=== PATIENT | female | born 1975 | race Caucasian/White ===

== ENCOUNTER 2018-05-30 14:57 | Inpatient (IN) | payer MEDICAID ==
[~2018-05-30] VITALS: Ht 162.6 cm; Wt 85.0 kg
[2018-05-30 16:28] VITALS: Ht 162.6 cm; Wt 85.0 kg
[2018-05-30 16:30] VITALS: BP 102/97; PULSE 71
[2018-05-30] MEDS ORDERED: PNV11TAB PO (16:31)
[2018-05-30] MEDS ORDERED: TERBUTALINE 1 ML ONE (18:25)
[2018-05-30] MEDS ORDERED: TERBUTALINE 1 MG/ML INJ SC ONE (18:30)
[2018-05-30] MEDS ORDERED: ACETAMINOPHEN 325 MG TAB PO PRN (21:30)
[2018-05-30] MEDS ORDERED: MAGNESIUM SULFATE 4 GM/100 ML 100 ML IV ONE (21:30)
--- NOTE | 2018-05-30 21:42 | HP ---
Date/Time of Note Date/Time of Note DATE: 05/30/18 TIME: 21:39 OB - History Hx of Present Chief Complaint: contractions Estimated Due Date: Jul 14, 2018 : 1 Para: 0 Spontaneous : 0 Therapeutic : 0 Care: Good Care Ultrasounds: Other Abnormal Ultrasound Findings: fibroids Obstetrical Complications: None Medical Complications: None Past Family/Social History * Past Medical, Surgical, Family and Obstetric Histories reviewed from chart. OB Admission Exam Vital Signs Vital Signs Vital Signs Date Temp Pulse Resp B/P (MAP) Pulse Ox O2 O2 Flow FiO2 Time Delivery Rate 05/30/18 98.8 71 102/97 16:30 (99) Physical Exam HEENT: WNL Heart: Rhythm Normal Lungs: Clear, Equal Abdomen: WNL Extremities: Normal Reflexes: Normal Cervical Dilatation: None Effacement: 75% Station: -2 Membranes: Intact Heart Rate: 130's Accelerations: Accelerations Present Decelerations: No Decelerations Varibility: Moderate Contractions on Admission: < 5 Minutes Apart OB Assessment/Plan Reason for admission: labor Plan: Other Other plan: Admit IV magnesium sulfate IM betamethasone RAVI ZUÑIGA MD May 30, 2018 21:42
[2018-05-30] MEDS: LACTATED RINGER'S 1,000 ML IV SCH (21:55)
[2018-05-30] MEDS: BETAMET NA PHOS/AC(6 MG/ML) 2 ML INJ SYG IM SCH (22:21)
[2018-05-30] MEDS: MAGNESIUM SULFATE 20 GM/500 ML 500 ML IV SCH (22:54)
--- NOTE | 2018-05-31 00:24 | TRIAGE ---
OB Triage Datetime Report Generated by CPN: 05/31/2018 00:24 Datetime: 05/30/2018 23:41 Stage of : Antepartum Assessment Type: Ongoing Assessment Maternal Assessment Level of Consciousness: Fully Conscious DTR's/Clonus: DTRs 2+; No Clonus Headache: Denies Blurred Vision: No Respiratory Effort: Unlabored; Regular Rhythm; Equal Expansion Breath Sounds, Left: Clear and Equal Breath Sounds, Right: Clear and Equal Nausea/Vomiting: Denies RUQ Epigastric Pain: Denies Lower Extremities Edema: None Degree: None Upper Extremities Edema: None Degree: None Facial Edema: None Temperature Route: Oral Fall Risk Assessment History of Falling: (0) No Secondary Diagnosis: (0) No Ambulatory Aid: (0) Bedrest/Nurse Assist IV Therapy: (0) No Gait: (0) Normal/Bedrest/Immobile Mental Status: (0) Oriented to Own Ability Fall Score: 0 Fall Risk Score Definition: No Risk: No action required Datetime: 05/30/2018 23:30 Stage of : Antepartum Labor Evaluation Frequency: 2-6 Monitor Mode: External Duration (sec)2399: 50-80 Quality: Mild Pattern: Normal: <= 5 Contractions in 10 Minutes Resting Tone [place]: Relaxed Heart Rate FHR Baseline Rate: 135 Monitor Mode: External US Variability: Moderate 6-25 bpm Accelerations: 15X15 Decelerations: None Category: Category I Pain Assessment Pain Scale: 0 Pain Presence: None/Denies Pain Goal: 3 Datetime: 05/30/2018 22:30 Stage of : Antepartum Labor Evaluation Frequency: 2-4 Monitor Mode: External Duration (sec)2399: 50-80 Quality: Mild Pattern: Normal: <= 5 Contractions in 10 Minutes Resting Tone [place]: Relaxed Heart Rate FHR Baseline Rate: 135 Monitor Mode: External US Variability: Moderate 6-25 bpm Accelerations: 15X15 Decelerations: None Category: Category I Pain Assessment Pain Scale: 0 Pain Presence: None/Denies Pain Goal: 3 Datetime: 05/30/2018 21:56 Vaginal Exam Membrane Status: Intact Datetime: 05/30/2018 21:30 Stage of : OB Triage Labor Evaluation Frequency: 2-6 Monitor Mode: External Duration (sec)2399: 40-100 Quality: Mild Pattern: Normal: <= 5 Contractions in 10 Minutes Resting Tone [place]: Relaxed Heart Rate FHR Baseline Rate: 135 Monitor Mode: External US Variability: Moderate 6-25 bpm Accelerations: 15X15 Decelerations: None Category: Category I Pain Assessment Pain Scale: 0 Pain Presence: None/Denies Pain Goal: 3 Datetime: 05/30/2018 20:30 Stage of : OB Triage Labor Evaluation Frequency: 2-6 Monitor Mode: External Duration (sec)2399: 40-70 Quality: Mild Pattern: Normal: <= 5 Contractions in 10 Minutes Resting Tone [place]: Relaxed Heart Rate FHR Baseline Rate: 135 Monitor Mode: External US Variability: Moderate 6-25 bpm Accelerations: 15X15 Decelerations: None Category: Category I Pain Assessment Pain Scale: 0 Pain Presence: None/Denies Pain Goal: 3 Datetime: 05/30/2018 19:30 Stage of : OB Triage Labor Evaluation Frequency: 5-8 Monitor Mode: External Duration (sec)2399: 40-70 Quality: Mild Pattern: Normal: <= 5 Contractions in 10 Minutes Resting Tone [place]: Relaxed Heart Rate FHR Baseline Rate: 135 Monitor Mode: External US Variability: Moderate 6-25 bpm Accelerations: 15X15 Decelerations: None Category: Category I Pain Assessment Pain Scale: 0 Pain Presence: None/Denies Pain Goal: 3 Datetime: 05/30/2018 18:32 Labor Evaluation Frequency: 6-8 Monitor Mode: External Duration (sec)2399: 30-40 Pattern: Normal: <= 5 Contractions in 10 Minutes Resting Tone [place]: Relaxed Heart Rate FHR Baseline Rate: 130 Monitor Mode: External US Variability: Moderate 6-25 bpm Accelerations: 10X10 Decelerations: None Category: Category I Pain Assessment Pain Scale: 0 Pain Presence: None/Denies Pain Type: N/A Pain Goal: 3 Pain Relief Measures: Comfort Measures Datetime: 05/30/2018 18:16 Stage of : OB Triage Datetime: 05/30/2018 17:31 Labor Evaluation Frequency: 3-6 Monitor Mode: External Duration (sec)2399: 40-60 Quality: Mild Pattern: Normal: <= 5 Contractions in 10 Minutes Resting Tone [place]: Relaxed Heart Rate FHR Baseline Rate: 125 Monitor Mode: External US Variability: Moderate 6-25 bpm Accelerations: 10X10 Decelerations: None Category: Category I Pain Assessment Pain Scale: 0 Pain Presence: Intermittent Pain Type: N/A Pain Goal: 3 Pain Relief Measures: Comfort Measures Datetime: 05/30/2018 16:25 Stage of : OB Triage Assessment Type: Triage Maternal Assessment Level of Consciousness: Fully Conscious DTR's/Clonus: DTRs 2+; No Clonus Headache: Denies Blurred Vision: No Respiratory Effort: Unlabored; Regular Rhythm; Equal Expansion Breath Sounds, Left: Clear and Equal Breath Sounds, Right: Clear and Equal Nausea/Vomiting: Denies RUQ Epigastric Pain: Denies Facial Edema: None Temperature Route: Axillary Fall Risk Assessment History of Falling: (0) No Secondary Diagnosis: (0) No Ambulatory Aid: (0) Bedrest/Nurse Assist IV Therapy: (0) No Gait: (0) Normal/Bedrest/Immobile Mental Status: (0) Oriented to Own Ability Fall Score: 0 Fall Risk Score Definition: No Risk: No action required Labor Evaluation Frequency: 3-4 Monitor Mode: External Duration (sec)2399: 50-60 Quality: Mild Pattern: Normal: <= 5 Contractions in 10 Minutes Resting Tone [place]: Relaxed Heart Rate FHR Baseline Rate: 135 Monitor Mode: External US Variability: Moderate 6-25 bpm Accelerations: 10X10 Decelerations: None Category: Category I Pain Assessment Pain Scale: 0 (Annotations: DENIES FEELING) Pain Presence: None/Denies Pain Type: N/A Pain Goal: 3 Pain Relief Measures: Comfort Measures Datetime: 05/30/2018 16:23 Time of Arrival: 05/30/2018 15:00 EGA: 33.4 Arrived By: Ambulatory Arrived From: Office Chief Complaint: SENT OVER FROM NST TO R/O PTL, DENIES BLEEDING, LEAKING, OR UC'S Movement: Present Contractions: Denies/Absent Rupture of Membranes: Denies Vaginal Bleeding: None Vaginal Discharge: Denies Recent Sexual Intercouse: Denies Abdominal Trauma: Not Applicable Time Provider Notified: 05/30/2018 18:16 Provider Notified: PIERCE Initial Plan: MONITOR, BPP, CL, U/A, EFW
[2018-05-31] MEDS: PRENATAL VITAMIN PO SCH (09:58)
[2018-05-31] MEDS: LACTATED RINGER'S 1,000 ML IV SCH ×2 (09:58→23:51)
[2018-05-31] MEDS: FERROUS SULFATE (EC) 325 MG TAB PO SCH (09:58)
[2018-05-31] MEDS: MAGNESIUM SULFATE 20 GM/500 ML 500 ML IV SCH ×2 (10:02→20:44)
[2018-05-31] MEDS ORDERED: DIPHTH/TET/ACEL PERTUSS (ADULT) 0.5 ML VIAL IM* ONE (13:30)
--- NOTE | 2018-05-31 18:15 | PN ---
Date/Time of Note Date/Time of Note DATE: 05/31/18 TIME: 18:09 OB Subjective Subjective Subjective Date of admission: 05/30/2018 Patient seen and examined. She states good movement. She denies nausea, vomiting, shortness of breath, chest pain, abdominal pain, headache, visual changes, vaginal bleeding or LOF. OB Objective Objective Objective General: Patient appears well, alert and oriented, NAD, appropriate mood and affect ABD: gravid, soft, non-tender. Back: No CVA tenderness (B/L) LE: Mild edema. No clubbing, cyanosis, edema, thigh or calf tenderness bilaterally FHT: 130 bpm , moderate variability with acceleration, no deceleration-category I Contractions: Occasional OB Assessment/Plan Other plan: 42 Year-old G [id number] with SIUP at 33 weeks and 5 days with contractions. She had regular contraction every 2-3 minutes last night, her cervix was closed. However due to short interval of uterine contraction was admitted. She received 1 dose of betamethasone, will receive second dose of betamethasone today at 22:00. She is currently on magnesium sulfate, continue magnesium sulf ate for 24 hours after receiving second dose of steroid. If she has no further uterine contraction she may discharge home tomorrow. I strongly recommend relative bedrest and avoid from sexual activity. Sign and symptom of labor, preeclampsia, kick count discussed in detail with patient. She expressed understanding. All of her questions answered. Follow-up in 1 week in clinic, strongly recommend come back to triage if experiencing any regular uterine contractions. TRAVIS PELAYO May 31, 2018 18:15
--- NOTE | 2018-05-31 20:00 | NUR ---
pt refused vaccine she stated she had the vaccine at the clinic.
--- NOTE | 2018-05-31 20:10 | DS ---
Date/Time of Note Date/Time of Note DATE: 05/31/18 TIME: 20:09 Obstetrical Discharge Record Final Diagnosis Final Diagnosis: not delivered Other Final Diagnosis 42 Year-old G [id number] with SIUP at 33 weeks and 5 days with contractions. She had regular contraction every 2-3 minutes last night, her cervix was closed. However due to short interval of uterine contraction was admitted. She received 1 dose of betamethasone, will receive second dose of betamethasone today at 22:00. She is currently on magnesium sulfate, continue magnesium sulfate for 24 hours after receiving second dose of steroid. If she has no further uterine contraction she may discharge home tomorrow. I strongly recommend relative bedrest and avoid from sexual activity. Sign and symptom of labor, preeclampsia, kick count discussed in detail with patient. She expressed understanding. All of her questions answered. Follow-up in 1 week in clinic, strongly recommend come back to triage if experiencing any regular uterine contractions. Condition on Discharge Physical Assessment Voiding: Yes Bowel Movement: Yes Calf Tenderness: No Patient Condition: Stable TRAVIS PELAYO May 31, 2018 20:10
[2018-05-31] MEDS: BETAMET NA PHOS/AC(6 MG/ML) 2 ML INJ SYG IM SCH (22:08)
--- NOTE | 2018-06-01 01:25 | CONS ---
DATE OF ADMISSION: 05/30/2018 DATE OF CONSULTATION: 05/31/2018 HISTORY OF PRESENT ILLNESS: The patient is a at 33 weeks and 5 days, presented with la bor. Cervical length I do believe is 2.8 cm. She was placed on magnesium sulfate and given the firs t dose of betamethasone. Second dose is due tonight. She is currently on magnesium sulfate. RECOMMENDATIONS: Continue with the magnesium sulfate until tomorrow morning. If the patient is asym ptomatic, we can discontinue and monitor for contractions for a few hours. If she is stable, she can be discharged home with labor precautions. Dictated By: BETSY ALVAREZ MD ST/NTS Conf#: [id number] DID#: [id number] CC: TRAVIS PELAYO MD;*EndCC*
[2018-06-01] MEDS: MAGNESIUM SULFATE 20 GM/500 ML 500 ML IV SCH (06:48)
[2018-06-01] MEDS: FERROUS SULFATE (EC) 325 MG TAB PO SCH (09:33)
[2018-06-01] MEDS: PRENATAL VITAMIN PO SCH (09:34)
[2018-06-01] MEDS ORDERED: LACTATED RINGER'S 1,000 ML IV SCH (12:30)
--- NOTE | 2018-06-01 13:01 | PN ---
Date/Time of Note Date/Time of Note DATE: 06/01/18 TIME: 12:58 OB Subjective Subjective Subjective Patient denies any complaint. Comfortable in the bed. Denies feeling any ut erine contraction, leaking of fluid, vaginal bleeding or decreased movement. Denies any chest pain shortness of breath, denies any dizziness lightheadedness, OB Objective Objective Objective Appearance: Alert and oriented x4 does not appear to be in any acute distress Abdomen: Soft, gravid, fundal height consider gestational age Lungs: Clear to auscultation bilaterally CV: RRR This: SCDs are on. No calf tenderness, no click no edema NST: Category 1 and appropriate for gestational age occasional very rare contractions noted on monitor. Patient does not have any Complaint of her symptoms. OB Assessment/Plan Other Assessment: IUP at 32 weeks Admitted for contraction On magnesium, asymptomatic, no evidence of regular contractions Status post 2 doses of steroid testing reassuring We will taper off of magnesium may discharge home if she remains stable and asymptomatic And okay discussed with patient to have a follow-up within 48 hours after discharge from the hospital with primary OB office. Strict labor precautions kick count discussed. Adequate hydration discussed after discharge from the hospital. Patient understands importance of these precautions and the risk of premature delivery in case of being noncompliant with instructions She is aware of all the danger signs including vaginal bleeding or decreased movement, contractions. LILI OLSON MD Jun 01, 2018 13:01
--- NOTE | 2018-06-01 16:13 | CONS ---
Consultation Date/Type/Reason Admit Date/Time May 30, 2018 at 21:30 Date of Consultation: Jun 01, 2018 Type of Consult Medicine Reason for Consultation [place] [facility] requested by Dr. Sevilla to discuss potential course and possible morbidity associated with at 33 weeks completed gestation following steroids. Met briefly with mother at bedside who is preparing for discharge home after presenting to L&D in labor with intact membranes 05/30 PM At 33 4/7 wks gestation. Mother is a 42 yo O+ [id number] with EDC 07/14/2018 (EGA 33 6/7 wks). She presented 05/30 and was treated with MgSO4. Contractions have now stopped and MgSO4 stopped this AM. A course of Betamethasone was started 05/30 PM and completed 05/31 PM. Advised mother through apprentice funeral director that infants born at this gestation following steroids generally do well. All infants born at this gestation are admitted to the Intensive Care Nursery. Although the possibility still exists that such newborns will have respiratory illness and require respiratory support, it is not a certainty and such infants usually require monitoring and support for temperature instability and nippling immaturity. Assuming that factors which increase the likelihood of infection do not exist, and the infant does not demonstrate immaturity related to breathing control, such infants generally remain hospitalized for 2-3 weeks. It was emphasized that the typical course is as discussed, but each infant is different and the course may vary. Mother voiced understanding and asked appropriate questions. Assured mother of availability if further questions should arise. Date/Time of Note DATE: 06/01/18 TIME: 15:47 Past Medical History Home Meds Reported Medications [id number] ( 19) 1 Each Tablet, 1 TAB PO DAILY, TAB 05/30/18 Medications Current Medications Prenat Multivit/ [place]/Iron/Folic Ac () 1 tab DAILY PO Last administered on 06/01/18at 09:34; Admin Dose 1 TAB; Start 05/31/18 at 09:00 Ferrous Sulfate (Ferrous Sulfate (Ec)) 325 mg DAILY PO Last administered on 06/01/18at 09:33; Admin Dose 325 MG; Start 05/31/18 at 09:00 Acetaminophen (Tylenol Tab) 650 mg Q4H PRN PO PAIN; Start 05/30/18 at 21:30 Lactated Ringer's 1,000 ml @ 100 mls/hr Q10H IV ; Start 06/01/18 at 12:30 Allergies: Coded Allergies: amoxicillin (Verified Allergy, Unknown, 05/30/18) Uncoded Allergies: pcn (Allergy, Unknown, 05/30/18) Social History Smoking Status: Never smoker Exam/Review of Systems Exam Vitals Vital Signs Date Temp Pulse Resp B/P (MAP) Pulse Ox O2 O2 Flow FiO2 Time Delivery Rate 05/30/18 98.8 71 102/97 16:30 (99) Intake and Output 05/31/18 05/31/18 06/01/18 1515:00 23:00 07:00 IntakeIntake Total 975 ml 2250 ml 1000 ml OutputOutput Total 1900 ml 1200 ml BalanceBalance -925 ml 1050 ml 1000 ml Results Result Diagram: 05/30/18214405/30/182144 Results 24hrs Laboratory Tests Test 05/31/18 18:28 06/01/18 00:48 06/01/18 06:29 06/01/18 12:03 Magnesium Level 5.8 *H 5.7 *H 5.9 *H 5.5 *H HAFSA JIMENEZ MD Jun 01, 2018 16:13
== END 2018-06-01 17:26 | disposition home or self-care (01) | DRG 833 ==
LOC: OBT 14:57 → L-D 14:59 → OBT 21:30 → L-D 21:30 → PP1 23:33
PROVIDERS: ADMIT Obstetrics & Gynecology; ATTEND Obstetrics & Gynecology
DX: O60.03 Preterm labor without delivery, third trimester (principal); Z3A.33 33 weeks gestation of pregnancy
CPT/HCPCS: 76815; 76817; 76818; 80053; 81003; 83735; 85025; 85610; 85730; 87086; 90686; 96372; G0463; J0702; J3105; J3475; J7120

== ENCOUNTER 2018-06-22 09:52 | Outpatient (CLI) | payer MEDICAID ==
[~2018-06-22] VITALS: Ht 152.4 cm; Wt 85.2 kg
[~2018-06-22 09:52] MED LIST: PNV11TAB PO
[2018-06-22 10:30] VITALS: Ht 152.4 cm; Wt 85.2 kg
[2018-06-22 10:32] VITALS: BP 101/68; PULSE 87; RESP 20
--- NOTE | 2018-06-22 13:09 | TRIAGE ---
OB Triage Datetime Report Generated by CPN: 06/22/2018 13:08 Datetime: 06/22/2018 10:33 Headache: Denies Labor Evaluation Frequency: 0 Monitor Mode: External Resting Tone [place]: Relaxed Heart Rate FHR Baseline Rate: 140 Monitor Mode: External US FHR Baseline Changes: No Baseline Change Variability: Minimal - Undetectable to <=5 bpm Accelerations: 10X10 Decelerations: None Category: Category II Pain Presence: None/Denies Datetime: 06/22/2018 10:22 Stage of : OB Triage Assessment Type: Triage Maternal Assessment Level of Consciousness: Fully Conscious DTR's/Clonus: DTRs 2+; No Clonus Headache: Denies Blurred Vision: No Respiratory Effort: Unlabored; Regular Rhythm; Equal Expansion Breath Sounds, Left: Clear and Equal Breath Sounds, Right: Clear and Equal Nausea/Vomiting: Denies RUQ Epigastric Pain: Denies Lower Extremities Edema: None Degree: None Upper Extremities Edema: None Degree: None Facial Edema: None Temperature Route: Axillary Fall Risk Assessment History of Falling: (0) No Secondary Diagnosis: (0) No Ambulatory Aid: (0) Bedrest/Nurse Assist IV Therapy: (0) No Gait: (0) Normal/Bedrest/Immobile Mental Status: (0) Oriented to Own Ability Fall Score: 0 Fall Risk Score Definition: No Risk: No action required Monitor Mode: External Monitor Mode: External US Pain Assessment Pain Scale: 0 Pain Presence: None/Denies Pain Type: N/A Pain Goal: 0 Pain Relief Measures: Comfort Measures Vaginal Exam Dilatation (cms): DEFFER Membrane Status: Intact Datetime: 06/22/2018 10:19 Time of Arrival: 06/22/2018 10:19 EGA: 36.6 Arrived By: Ambulatory Arrived From: Home Chief Complaint: DECREASED FERAL MOVEMENT AT [facility],HAS A COLD FOR 3 DAYS Movement: Decreased Contractions: Denies/Absent Rupture of Membranes: Denies Vaginal Bleeding: None Vaginal Discharge: Denies Recent Sexual Intercouse: Denies Abdominal Trauma: Not Applicable Patient Complaints: Other Additional Patient Complaints: NONE Time Provider Notified: 06/22/2018 11:05 Provider Notified: ARDALN Initial Plan: EXTENDED OBSERVATION Datetime: 06/01/2018 16:00 Stage of : Antepartum Temperature Route: Oral Labor Evaluation Frequency: 0 Monitor Mode: External Pattern: Normal: <= 5 Contractions in 10 Minutes Resting Tone [place]: Relaxed Heart Rate FHR Baseline Rate: 130 Monitor Mode: External US FHR Baseline Changes: No Baseline Change Variability: Moderate 6-25 bpm Accelerations: 15X15 Decelerations: None Category: Category I Pain Assessment Pain Scale: 0 Pain Presence: None/Denies Pain Goal: 0 Datetime: 06/01/2018 15:00 Labor Evaluation Frequency: 0 Monitor Mode: External Pattern: Normal: <= 5 Contractions in 10 Minutes Resting Tone [place]: Relaxed Heart Rate FHR Baseline Rate: 130 Monitor Mode: External US FHR Baseline Changes: No Baseline Change Variability: Moderate 6-25 bpm Accelerations: 15X15 Decelerations: None Category: Category I Datetime: 06/01/2018 14:00 Labor Evaluation Frequency: 0 Monitor Mode: External Resting Tone [place]: Relaxed Heart Rate FHR Baseline Rate: 130 Monitor Mode: External US FHR Baseline Changes: No Baseline Change Variability: Moderate 6-25 bpm Accelerations: 15X15 Decelerations: None Category: Category I Datetime: 06/01/2018 12:32 Labor Evaluation Frequency: 0 Monitor Mode: External Resting Tone [place]: Relaxed Heart Rate FHR Baseline Rate: 125 Monitor Mode: External US FHR Baseline Changes: No Baseline Change Variability: Moderate 6-25 bpm Accelerations: 15X15 Decelerations: None Category: Category I Datetime: 06/01/2018 12:31 Stage of : Antepartum Temperature Route: Oral Pain Assessment Pain Scale: 0 Pain Presence: None/Denies Pain Goal: 0 Datetime: 06/01/2018 12:00 Labor Evaluation Frequency: 0 Monitor Mode: External Pattern: Normal: <= 5 Contractions in 10 Minutes Resting Tone [place]: Relaxed Heart Rate FHR Baseline Rate: 125 Monitor Mode: External US FHR Baseline Changes: No Baseline Change Variability: Moderate 6-25 bpm Accelerations: 15X15 Decelerations: None Category: Category I Datetime: 06/01/2018 11:00 Labor Evaluation Frequency: 0 Monitor Mode: External Pattern: Normal: <= 5 Contractions in 10 Minutes Resting Tone [place]: Relaxed Heart Rate FHR Baseline Rate: 120 Monitor Mode: External US FHR Baseline Changes: No Baseline Change Variability: Moderate 6-25 bpm Accelerations: 15X15 Decelerations: None Category: Category I Datetime: 06/01/2018 10:07 Stage of : Antepartum Datetime: 06/01/2018 10:00 Labor Evaluation Frequency: 0 Monitor Mode: External Pattern: Normal: <= 5 Contractions in 10 Minutes Resting Tone [place]: Relaxed Heart Rate FHR Baseline Rate: 120 Monitor Mode: External US FHR Baseline Changes: No Baseline Change Variability: Moderate 6-25 bpm Accelerations: 15X15 Decelerations: None Category: Category I Datetime: 06/01/2018 09:00 Labor Evaluation Frequency: 0 Monitor Mode: External Pattern: Normal: <= 5 Contractions in 10 Minutes Resting Tone [place]: Relaxed Heart Rate FHR Baseline Rate: 125 Monitor Mode: External US FHR Baseline Changes: No Baseline Change Variability: Moderate 6-25 bpm Accelerations: 15X15 Decelerations: None Category: Category I Datetime: 06/01/2018 07:44 Labor Evaluation Frequency: 0 Monitor Mode: External Pattern: Normal: <= 5 Contractions in 10 Minutes Heart Rate FHR Baseline Rate: 120 Monitor Mode: External US FHR Baseline Changes: No Baseline Change Variability: Moderate 6-25 bpm Accelerations: 15X15 Decelerations: None Category: Category I Datetime: 06/01/2018 07:43 Stage of : Antepartum Temperature Route: Oral Pain Assessment Pain Scale: 0 Pain Presence: None/Denies Pain Goal: 0 Datetime: 06/01/2018 07:39 Assessment Type: Ongoing Assessment Maternal Assessment Level of Consciousness: Fully Conscious DTR's/Clonus: DTRs 2+; No Clonus Headache: Denies Blurred Vision: No Respiratory Effort: Unlabored; Regular Rhythm; Equal Expansion Breath Sounds, Left: Clear and Equal Breath Sounds, Right: Clear and Equal Nausea/Vomiting: Denies RUQ Epigastric Pain: Denies Lower Extremities Edema: None Degree: None Upper Extremities Edema: None Degree: None Facial Edema: None Fall Risk Assessment History of Falling: (0) No Secondary Diagnosis: (0) No Ambulatory Aid: (0) Bedrest/Nurse Assist IV Therapy: (20) Yes Gait: (0) Normal/Bedrest/Immobile Mental Status: (0) Oriented to Own Ability Fall Score: 20 Fall Risk Score Definition: No Risk: No action required Datetime: 06/01/2018 06:00 Labor Evaluation Frequency: 0 Monitor Mode: External Resting Tone [place]: Relaxed Heart Rate FHR Baseline Rate: 125 Monitor Mode: External US Variability: Moderate 6-25 bpm Accelerations: 15X15 Decelerations: None Category: Category I Pain Presence: None/Denies Datetime: 06/01/2018 05:00 Labor Evaluation Frequency: 0 Monitor Mode: External Duration (sec)2399: DENIES Resting Tone [place]: Relaxed Heart Rate FHR Baseline Rate: 130 Monitor Mode: External US Variability: Moderate 6-25 bpm Accelerations: 15X15 Decelerations: None Category: Category I Pain Presence: None/Denies Datetime: 06/01/2018 04:00 Labor Evaluation Frequency: 0 Monitor Mode: External Duration (sec)2399: DENIES Resting Tone [place]: Relaxed Heart Rate FHR Baseline Rate: 125 Monitor Mode: External US Variability: Moderate 6-25 bpm Accelerations: 15X15 Decelerations: None Category: Category I Pain Presence: None/Denies Datetime: 06/01/2018 03:00 Labor Evaluation Frequency: X2 Monitor Mode: External Duration (sec)2399: 40-60 Quality: Mild Resting Tone [place]: Relaxed Heart Rate FHR Baseline Rate: 130 Monitor Mode: External US Variability: Moderate 6-25 bpm Accelerations: 15X15 Decelerations: None Category: Category I Pain Presence: None/Denies Datetime: 06/01/2018 02:00 Stage of : Antepartum Labor Evaluation Frequency: x2 Monitor Mode: External Duration (sec)2399: 50-60 Quality: Mild Resting Tone [place]: Relaxed Heart Rate FHR Baseline Rate: 125 Monitor Mode: External US Variability: Moderate 6-25 bpm Accelerations: 15X15 Decelerations: None Category: Category I Pain Presence: None/Denies Datetime: 06/01/2018 01:00 Labor Evaluation Frequency: x1 Monitor Mode: External Duration (sec)2399: 50 Quality: Mild Resting Tone [place]: Relaxed Heart Rate FHR Baseline Rate: 130 Monitor Mode: External US Variability: Moderate 6-25 bpm Accelerations: 15X15 Decelerations: None Category: Category I Pain Presence: None/Denies Datetime: 06/01/2018 00:00 Labor Evaluation Frequency: 0 Monitor Mode: External Duration (sec)2399: DENIES Resting Tone [place]: Relaxed Heart Rate FHR Baseline Rate: 135 Monitor Mode: External US Variability: Moderate 6-25 bpm Accelerations: 15X15 Decelerations: None Category: Category I Pain Presence: None/Denies Datetime: 05/31/2018 23:00 Labor Evaluation Frequency: 0 Monitor Mode: External Duration (sec)2399: DENIES Resting Tone [place]: Relaxed Heart Rate FHR Baseline Rate: 135 Monitor Mode: External US Variability: Moderate 6-25 bpm Accelerations: 15X15 Decelerations: None Category: Category I Pain Presence: None/Denies Datetime: 05/31/2018 22:00 Labor Evaluation Frequency: 0 Monitor Mode: External Duration (sec)2399: DENIES Resting Tone [place]: Relaxed Heart Rate FHR Baseline Rate: 135 Monitor Mode: External US Accelerations: 15X15 Decelerations: None Category: Category I Pain Presence: None/Denies Datetime: 05/31/2018 21:18 Comments: PT DONE EATING. Datetime: 05/31/2018 21:00 Labor Evaluation Frequency: 0 Monitor Mode: External Duration (sec)2399: DENIES Resting Tone [place]: Relaxed Heart Rate FHR Baseline Rate: 130 Pain Presence: None/Denies Datetime: 05/31/2018 20:40 Comments: PT OFF MONITOR SHE IS EATING DINNER. Datetime: 05/31/2018 20:00 Labor Evaluation Frequency: 0 Monitor Mode: External Duration (sec)2399: DENIES Resting Tone [place]: Relaxed Heart Rate FHR Baseline Rate: 135 Monitor Mode: External US Variability: Moderate 6-25 bpm Accelerations: 15X15 Decelerations: None Category: Category I Pain Presence: None/Denies Datetime: 05/31/2018 19:10 Stage of : Antepartum Assessment Type: Ongoing Assessment Maternal Assessment Level of Consciousness: Fully Conscious DTR's/Clonus: DTRs 2+; No Clonus Headache: Denies Blurred Vision: No Respiratory Effort: Unlabored; Regular Rhythm; Equal Expansion Breath Sounds, Left: Clear and Equal Breath Sounds, Right: Clear and Equal Nausea/Vomiting: Denies RUQ Epigastric Pain: Denies Lower Extremities Edema: None Degree: None Upper Extremities Edema: None Facial Edema: None Temperature Route: Oral Fall Risk Assessment History of Falling: (0) No Secondary Diagnosis: (0) No Ambulatory Aid: (0) Bedrest/Nurse Assist IV Therapy: (0) No Gait: (0) Normal/Bedrest/Immobile Mental Status: (0) Oriented to Own Ability Fall Score: 0 Fall Risk Score Definition: No Risk: No action required Pain Presence: None/Denies Datetime: 05/31/2018 17:15 Stage of : Antepartum Temperature Route: Oral Labor Evaluation Frequency: 0 Monitor Mode: External Pattern: Normal: <= 5 Contractions in 10 Minutes Monitor Mode: off in the shower with supervision Pain Assessment Pain Scale: 0 Pain Presence: None/Denies Pain Goal: 0 Datetime: 05/31/2018 17:12 Stage of : Antepartum Temperature Route: Oral Pain Assessment Pain Scale: 0 Pain Presence: None/Denies Pain Goal: 0 Datetime: 05/31/2018 16:00 Labor Evaluation Frequency: 0 Monitor Mode: External Pattern: Normal: <= 5 Contractions in 10 Minutes Resting Tone [place]: Relaxed Heart Rate FHR Baseline Rate: 140 (Annotations: poor tracings) Monitor Mode: External US Datetime: 05/31/2018 15:06 Stage of : Antepartum Temperature Route: Oral Pain Assessment Pain Scale: 0 Pain Presence: None/Denies Pain Goal: 0 Datetime: 05/31/2018 15:00 Labor Evaluation Frequency: 0 Monitor Mode: External Pattern: Normal: <= 5 Contractions in 10 Minutes Resting Tone [place]: Relaxed Heart Rate FHR Baseline Rate: 130 Monitor Mode: External US FHR Baseline Changes: No Baseline Change Variability: Moderate 6-25 bpm Accelerations: 15X15 Decelerations: None Category: Category I Datetime: 05/31/2018 14:00 Labor Evaluation Frequency: 0 Monitor Mode: External Pattern: Normal: <= 5 Contractions in 10 Minutes Resting Tone [place]: Relaxed Heart Rate FHR Baseline Rate: 130 Monitor Mode: External US FHR Baseline Changes: No Baseline Change Variability: Moderate 6-25 bpm Accelerations: 15X15 Decelerations: None Category: Category I Datetime: 05/31/2018 13:00 Labor Evaluation Frequency: 0 Monitor Mode: External Pattern: Normal: <= 5 Contractions in 10 Minutes Resting Tone [place]: Relaxed Heart Rate FHR Baseline Rate: 130 Monitor Mode: External US FHR Baseline Changes: No Baseline Change Variability: Moderate 6-25 bpm Accelerations: 15X15 Decelerations: None Category: Category I Datetime: 05/31/2018 12:58 Stage of : Antepartum Datetime: 05/31/2018 12:35 Stage of : Antepartum Temperature Route: Oral Pain Assessment Pain Scale: 0 Pain Presence: None/Denies Pain Goal: 0 Datetime: 05/31/2018 11:49 Labor Evaluation Frequency: x2 Monitor Mode: External Quality: Mild Resting Tone [place]: Relaxed Heart Rate FHR Baseline Rate: 130 Monitor Mode: External US FHR Baseline Changes: No Baseline Change Variability: Moderate 6-25 bpm Accelerations: 15X15 Decelerations: None Category: Category I Datetime: 05/31/2018 11:45 Stage of : Antepartum Datetime: 05/31/2018 11:29 Stage of : Antepartum Datetime: 05/31/2018 11:03 Maternal Assessment Level of Consciousness: Fully Conscious DTR's/Clonus: DTRs 2+; No Clonus Headache: Denies Blurred Vision: No Respiratory Effort: Unlabored; Regular Rhythm Breath Sounds, Left: Clear and Equal Breath Sounds, Right: Clear and Equal Datetime: 05/31/2018 11:00 Stage of : Antepartum Labor Evaluation Frequency: 0 Monitor Mode: External Resting Tone [place]: Relaxed Heart Rate FHR Baseline Rate: 130 Monitor Mode: External US FHR Baseline Changes: No Baseline Change Variability: Moderate 6-25 bpm Accelerations: 15X15 Decelerations: None Category: Category I Datetime: 05/31/2018 10:00 Labor Evaluation Frequency: 0 Monitor Mode: External Pattern: Normal: <= 5 Contractions in 10 Minutes Resting Tone [place]: Relaxed Heart Rate FHR Baseline Rate: 130 Monitor Mode: External US FHR Baseline Changes: No Baseline Change Variability: Moderate 6-25 bpm Accelerations: 15X15 Decelerations: None Category: Category I Datetime: 05/31/2018 09:30 Labor Evaluation Frequency: X1 Monitor Mode: External Resting Tone [place]: Relaxed Heart Rate FHR Baseline Rate: 130 Monitor Mode: External US FHR Baseline Changes: No Baseline Change Variability: Moderate 6-25 bpm Accelerations: 15X15 Decelerations: None Category: Category I Datetime: 05/31/2018 09:00 Labor Evaluation Frequency: 0 Monitor Mode: External Resting Tone [place]: Relaxed Monitor Mode: External US Datetime: 05/31/2018 07:56 Stage of : Labor Datetime: 05/31/2018 07:55 Labor Evaluation Frequency: X1 Monitor Mode: External Resting Tone [place]: Relaxed Heart Rate FHR Baseline Rate: 125 Monitor Mode: External US FHR Baseline Changes: No Baseline Change Variability: Moderate 6-25 bpm Accelerations: 15X15 Decelerations: None Category: Category I Datetime: 05/31/2018 07:54 Stage of : Antepartum Temperature Route: Oral Pain Assessment Pain Scale: 0 Pain Presence: None/Denies Pain Goal: 0 Datetime: 05/31/2018 07:50 Assessment Type: Ongoing Assessment Maternal Assessment Level of Consciousness: Fully Conscious DTR's/Clonus: DTRs 2+; No Clonus Headache: Denies Blurred Vision: No Respiratory Effort: Unlabored; Regular Rhythm; Equal Expansion Breath Sounds, Left: Clear and Equal Breath Sounds, Right: Clear and Equal Nausea/Vomiting: Denies RUQ Epigastric Pain: Denies Lower Extremities Edema: None Degree: None Upper Extremities Edema: None Degree: None Facial Edema: None Fall Risk Assessment History of Falling: (0) No Secondary Diagnosis: (0) No Ambulatory Aid: (0) Bedrest/Nurse Assist IV Therapy: (20) Yes Gait: (0) Normal/Bedrest/Immobile Mental Status: (0) Oriented to Own Ability Fall Score: 20 Fall Risk Score Definition: No Risk: No action required Datetime: 05/31/2018 07:45 Stage of : Antepartum Datetime: 05/31/2018 06:30 Labor Evaluation Frequency: x3 Monitor Mode: External Duration (sec)2399: 40-50 Quality: Mild Resting Tone [place]: Relaxed Heart Rate FHR Baseline Rate: 140 Monitor Mode: External US Variability: Moderate 6-25 bpm Accelerations: 15X15 Decelerations: None Category: Category I Pain Presence: None/Denies Datetime: 05/31/2018 05:30 Labor Evaluation Frequency: occasional Monitor Mode: External Duration (sec)2399: 40-60 Quality: Mild Resting Tone [place]: Relaxed Heart Rate FHR Baseline Rate: 135 Monitor Mode: External US Variability: Moderate 6-25 bpm Accelerations: 15X15 Decelerations: None Category: Category I Pain Presence: None/Denies Datetime: 05/31/2018 04:30 Labor Evaluation Frequency: 0 Monitor Mode: External Duration (sec)2399: DENIES Resting Tone [place]: Relaxed Heart Rate FHR Baseline Rate: 130 Monitor Mode: External US Variability: Moderate 6-25 bpm Accelerations: 15X15 Decelerations: None Category: Category I Datetime: 05/31/2018 03:30 Labor Evaluation Frequency: 0 Monitor Mode: External Duration (sec)2399: DENIES Resting Tone [place]: Relaxed Heart Rate FHR Baseline Rate: 135 Monitor Mode: External US Variability: Moderate 6-25 bpm Accelerations: 15X15 Decelerations: None Category: Category I Pain Presence: None/Denies Datetime: 05/31/2018 02:30 Labor Evaluation Frequency: 0 Monitor Mode: External Duration (sec)2399: DENIES Resting Tone [place]: Relaxed Heart Rate FHR Baseline Rate: 135 Monitor Mode: External US Variability: Moderate 6-25 bpm Accelerations: 15X15 Decelerations: Variable Category: Category II Datetime: 05/31/2018 01:30 Labor Evaluation Frequency: 0 Monitor Mode: External Duration (sec)2399: DENIES Resting Tone [place]: Relaxed Heart Rate FHR Baseline Rate: 135 Monitor Mode: External US Variability: Moderate 6-25 bpm Accelerations: 15X15 Decelerations: None Category: Category I Datetime: 05/31/2018 00:30 Labor Evaluation Frequency: x1 Monitor Mode: External Duration (sec)2399: 40 Quality: Mild Resting Tone [place]: Relaxed Heart Rate FHR Baseline Rate: 140 Monitor Mode: External US Variability: Moderate 6-25 bpm Accelerations: 15X15 Decelerations: None Category: Category I Pain Presence: None/Denies Datetime: 05/30/2018 23:41 Fall Score: 0 Fall Risk Score Definition: No Risk: No action required Datetime: 05/30/2018 16:25 Fall Score: 0 Fall Risk Score Definition: No Risk: No action required Datetime: 05/30/2018 16:23 EGA: 33.4
--- NOTE | 2018-07-06 19:04 | PN ---
Triage Information Date/Time Late entry note for exam for June 22, 2018 Reason for visit: DFM Weeks of Gestation 36 weeks and 6 days /Para Additional information 23-year-old female with at 36 weeks and 6 days currently being followed at [facility] clinic due to low in hip pain. She was sent to triage due to decreased movement and cold symptoms. Patient denies any leaking of fluid vaginal bleeding or contractions. Objective Heart Rate: 130's Heart Rate Comments Category 1 and reactive Contractions: None Exam General appearance: Alert and oriented x4 does not appear to be in any acute distress Abdomen: Soft, gravid, fundal height consider gestational age NST: Category 1 BPP: 8 8 Disposition: Discharge Assessment/Plan IUP at 36 weeks and 6 days Decreased movement No any pain. Being followed by [facility] clinic testing reassuring Patient will be discharged home patient advised to continue testing twice a week and follow-up with perinatologist Verbalized understanding. All questions were answered to patient's best satisfaction. LILI OLSON MD Jul 06, 2018 19:04
== END 2018-06-22 12:50 | disposition home or self-care (01) ==
LOC: OBT 09:52 → L-D 09:52 → OBT 12:50
PROVIDERS: ATTEND Obstetrics & Gynecology
DX: O36.8130 Decreased fetal movements, third trimester, not applicable or unspecified (principal); Z3A.36 36 weeks gestation of pregnancy
CPT/HCPCS: 76818; Z7500; G0463

== ENCOUNTER 2018-07-03 10:20 | Outpatient (CLI) | payer MEDICAID ==
[~2018-07-03] VITALS: Ht 157.5 cm; Wt 85.1 kg
[2018-07-03 10:38] VITALS: BP 115/73; PULSE 73; RESP 20; Ht 157.5 cm; Wt 85.1 kg
[2018-07-03] MEDS ORDERED: CALC-143 PO (10:44)
[2018-07-03] MEDS ORDERED: FER325 PO (10:45)
--- NOTE | 2018-07-03 15:46 | PN ---
Triage Information Date/Time Reason for visit: 38+with Increased inhibin for NST BPP Weeks of Gestation 38+ /Para n/a Diabetes: none Hypertention: none Objective Vital Signs Date Temp Pulse Resp B/P (MAP) Pulse Ox O2 O2 Flow FiO2 Time Delivery Rate 07/03/18 98.3 73 20 115/73 Room Air 10:38 (87) Heart Rate: 140's Contractions: 6-10 Minutes Apart Results/Medications Results 24 hrs Laboratory Tests Test 07/03/18 10:30 Urine Color STRAW Urine Clarity CLEAR Urine pH 7.0 Urine Specific [place] 1.001 L Urine Ketones NEGATIVE Urine Nitrite NEGATIVE Urine Bilirubin NEGATIVE Urine Urobilinogen NEGATIVE Urine Leukocyte Esterase NEGATIVE Urine Microscopic RBC 0 Urine Microscopic WBC 0 Urine Bacteria FEW A Urine Hemoglobin 1+ H Urine Glucose NEGATIVE Urine Total Protein NEGATIVE Disposition: Discharge Assessment/Plan BP 02/15 Questions answered Precautions discussed Follow up with provider KIRAN DE LA ROSA M.D. Jul 03, 2018 15:46
--- NOTE | 2018-07-04 15:39 | NSTRPT ---
NST Information Datetime Report Generated by CPN: 07/04/2018 15:39 Datetime: 07/03/2018 08:11 NST Information EGA: 38.3 Time on Monitor: 07/03/2018 08:36 Time off Monitor: 07/03/2018 09:37 NST Duration (Min): 61 Test and Monitor Explained: Monitor Explained; Test Explained; Verbalized Understanding Pulse: 66 Resp: 18 SBP: 109 DBP: 68 Test Evaluation NST Interventions: Reposition Patient; Acoustic Stimulation NST Interventions Other: 0855 FAS with accel to 160 x 20 sec /extended monitoring Contraction Frequency: none FHR Baseline : 145 Variability: Moderate 6-25bpm Accelerations: 10X10 Decelerations: Variable FHR Category: Category II NST Results: Non-Reactive Provider Notified: dR Chacko RE NONREACTIVE NST/DR PELAYO Comments: EMILY 8.5 CM CEPHALIC Variable x 1 reyes 100 bpm x 1 @ 0929 Dr Chacko recommends pt go to triage for extended monitoring, Dr Pelayo gave orders for pt to go to triage. Report to Sonam Gutierrez in triage _ records _ preliminary US report faxed to triage Electronically Signed By E-Signature: with User ID: [id number] Datetime: 06/29/2018 13:30 NST Information EGA: 37.6 NST Duration (Min): 23 Datetime: 06/27/2018 13:15 NST Information EGA: 37.4 NST Duration (Min): 25 Datetime: 06/22/2018 08:10 NST Information EGA: 36.6 NST Duration (Min): 48 Datetime: 06/19/2018 08:07 NST Information EGA: 36.3 NST Duration (Min): 25 Datetime: 06/15/2018 10:15 NST Information EGA: 35.6 NST Duration (Min): 34 Datetime: 06/12/2018 14:24 NST Information EGA: 35.3 NST Duration (Min): 26 Datetime: 06/08/2018 13:20 NST Information EGA: 34.6 NST Duration (Min): 28 Datetime: 06/06/2018 10:55 NST Information EGA: 34.4 NST Duration (Min): 32 Datetime: 06/02/2018 13:54 NST Information EGA: 34.0 NST Duration (Min): 27 Datetime: 05/30/2018 13:24 NST Information EGA: 33.4 NST Duration (Min): 23 Datetime: 05/26/2018 13:21 NST Information EGA: 33.0
== END 2018-07-03 16:01 | disposition home or self-care (01) ==
LOC: L-D 10:20 → OBT 10:20
PROVIDERS: ATTEND Obstetrics & Gynecology
DX: O36.8130 Decreased fetal movements, third trimester, not applicable or unspecified (principal); Z3A.38 38 weeks gestation of pregnancy
CPT/HCPCS: 76818; 81001; Z7500; G0463

== ENCOUNTER 2018-07-06 10:42 | Inpatient (IN) | payer MEDICAID ==
[~2018-07-06] VITALS: Ht 160 cm; Wt 85.3 kg
[~2018-07-06 10:42] MED LIST changes: +CALC-143 PO; +FER325 PO
[2018-07-06] MEDS ORDERED: LACTATED RINGER'S 1,000 ML IV PRN (11:12)
[2018-07-06] MEDS ORDERED: MISOPROSTOL 200 MCG TAB PR PRN (11:30)
[2018-07-06] MEDS ORDERED: LIDOCAINE 1% (MPF) 30 ML INJ INJ PRN (11:30)
[2018-07-06] MEDS ORDERED: OXYTOCIN 30 UNITS/LR 500 ML IV SCH ×2 (11:30)
[2018-07-06] MEDS ORDERED: OXYTOCIN 30 UNITS/LR 500 ML IV PRN (11:30)
[2018-07-06] MEDS ORDERED: METHYLERGONOVINE 0.2 MG INJ IM PRN (11:30)
[2018-07-06] MEDS ORDERED: BUTORPHANOL 2 MG INJ IV PRN (11:30)
[2018-07-06] MEDS ORDERED: CARBOPROST 250 MCG INJ IM PRN (11:30)
[2018-07-06] MEDS ORDERED: IBUPROFEN 600 MG TAB PO PRN (11:30)
[2018-07-06 11:42] VITALS: BP 112/73; PULSE 76; RESP 17; Ht 160 cm; Wt 85.3 kg
[2018-07-06] MEDS: LACTATED RINGER'S 1,000 ML IV SCH ×3 (11:44→21:53)
[2018-07-06] MEDS: MISOPROSTOL 50 MCG CAPSULE PO SCH ×3 (13:22→21:00)
--- NOTE | 2018-07-06 23:25 | PREAC ---
Date/Time of Note Date/Time of Note DATE: 07/06/18 TIME: 23:24 Anesthesia Eval and Record Evaluation Time Pre-Procedure Interview DATE: 07/06/18 TIME: 23:24 Age 43 Sex female NPO: 8 hrs Preoperative diagnosis labor pain Planned procedure labor epidural Past Medical History Past Medical History: None Surgery & Anesthesia Issues No known issue Meds Anticoagulation: No Beta Alverto within 24 hr: No Reason Beta Alverto not given: Pt. not on B-Alverto Reported Medications Ferrous Sulfate* (Ferrous Sulfate*) 325 Mg Tabec, 325 MG PO DAILY, TAB 07/03/18 Calcium Citrate/Vitamin D (Citracal-Vitamin D 200 MG-250) 1 Each Tablet, 1 EACH PO DAILY, TAB 07/03/18 [id number] ( ) 1 Each Tablet, 1 TAB PO DAILY, TAB 05/30/18 Current Medications Lactated Ringer's 1,000 ml @ 125 mls/hr Q8H IV Last administered on 07/06/18at 21:53; Admin Dose 125 MLS/HR; Start 07/06/18 at 11:12 Butorphanol Tartrate (Stadol) 2 mg Q2H PRN IV .PAIN; Start 07/06/18 at 11:30 Lidocaine (Xylocaine 1% (Mpf)) 30 ml ONCE PRN INJ .EPISIOTOMY; Start 07/06/18 at 11:30 Oxytocin/Lactated Ringer's 500 ml @ 500 mls/hr ONCE POST IV ; Start 07/06/18 at 11:30 Oxytocin/Lactated Ringer's 500 ml @ 125 mls/hr POST IV ; Start 07/06/18 at 11:30 Ibuprofen (Motrin) 600 mg ONCE PRN PO .PAIN 1-5; Start 07/06/18 at 11:30 Lactated Ringer's 1,000 ml @ 2,000 mls/hr Q30M PRN IV .ANESTHESIA; Start at 11:12 Oxytocin/Lactated Ringer's 500 ml @ 0 mls/hr ONCE PRN IV .VAGINAL BLEEDING; Start 07/06/18 at 11:30 Methylergonovine Maleate (Methergine) 0.2 mg ONCE PRN IM .VAGINAL BLEEDING; Start 07/06/18 at 11:30 Carboprost Tromethamine (Hemabate) 250 mcg ONCE PRN IM .VAGINAL BLEEDING; Start 07/06/18 at 11:30 Misoprostol (Cytotec) 1,000 mcg ONCE PRN ME .VAGINAL BLEEDING; Start 07/06/18 at 11:30 Misoprostol (Cytotec 50 Mcg Capsule) 50 mcg Q4 PO Last administered on 07/06/18at 13:22; Admin Dose 50 MCG; Start 07/06/18 at 13:30 Meds reviewed: Yes Allergies Coded Allergies: amoxicillin (Verified Allergy, Unknown, 05/30/18) Uncoded Allergies: pcn (Allergy, Unknown, 05/30/18) Allergies Reviewed: Yes Labs/Studies Labs Reviewed: Reviewed by anesthesiologist Result Diagram: 07/06/18 1150 Laboratory Tests 07/06/18 11:50 Blood Bank Test 07/06/18 11:50 Antibody Screen NEGATIVE Blood Type O POSITIVE Rh Immune Globulin Candidate NO test: Positive Pre-procedure Exam Last vitals Vital Signs Date Temp Pulse Resp B/P (MAP) Pulse Ox O2 O2 Flow FiO2 Time Delivery Rate 07/06/18 98.0 76 17 112/73 11:42 (86) Airway: Adequate mouth opening, Adequate thyromental dist Mallampati: Mallampati III Teeth: Normal Lung: Normal Heart: Normal ASA Physical Status ASA physical status: 2 Emergency: None Planned Anesthetic Neuraxial: Epidural Planned Pain Management Epidural, Parenteral pain med Pre-operative Attestations Prior to commencing anesthesia and surgery, the patient was re-evaluated, there was verification of: *The patient's identity *The results of appropriate recent lab work and preoperative vital signs *The above evaluation not changing prior to induction *Anesthetic plan, risk benefits, alternative and complications discussed with patient/family; questions answered; patient/family understands, accepts and wishes to proceed. MARÍA MORENO MD Jul 06, 2018 23:25
[2018-07-06] MEDS ORDERED: FENTAnyl 2MCG/ML-ROPIV 0.2% 100 ML ONE (23:28)
[2018-07-06] MEDS ORDERED: ZOLPIDEM 5 MG TAB PO PRN (23:30)
[2018-07-06] MEDS ORDERED: ONDANSETRON 4 MG INJ IV PRN (23:30)
[2018-07-06] MEDS ORDERED: DIPHENHYDRAMINE 50 MG INJ IV PRN (23:30)
[2018-07-06] MEDS ORDERED: KETOROLAC 30 MG INJ IV PRN (23:30)
[2018-07-06] MEDS ORDERED: FENTAnyl 2MCG/ML-ROPIV 0.2% 100 ML BAG EPI SCH (23:30)
[2018-07-06] MEDS ORDERED: NALOXONE (0.4 MG/ML) INJ IV PRN (23:30)
[2018-07-06] MEDS ORDERED: HYDROmorphONE 0.5 MG/0.5 ML SYG IV PRN ×2 (23:30)
--- NOTE | 2018-07-06 23:32 | HP ---
Date/Time of Note Date/Time of Note DATE: 07/06/18 TIME: 23:23 OB - History Hx of Present Free Text/Dictation 42y.o here at 38w6d for induction of labor due to CAT II tracing.. VE ftp/60/-3 EFM decrease BBV deceleration which is multiple and subtle but not repetitive. tracing improve with IV hydration admitted for IOL GBS neg EFW [id number] Chief Complaint: for IOL for CAT II Estimated Due Date: Jul 14, 2018 : 4 Para: 0 Spontaneous : 3 Therapeutic : 0 Care: Good Care Ultrasounds: Normal mid trimester US Obstetrical Complications: None Medical Complications: None Past Family/Social History * Past Medical, Surgical, Family and Obstetric Histories reviewed from chart. Blood Type: O+ Rubella: immune RPR/VDRL: Negative GBS Status: Negative HBsAG: Negative OB Admission Exam Vital Signs Vital Signs Vital Signs Date Temp Pulse Resp B/P (MAP) Pulse Ox O2 O2 Flow FiO2 Time Delivery Rate 07/06/18 98.0 76 17 112/73 11:42 (86) Physical Exam HEENT: WNL Heart: Rhythm Normal Lungs: Clear, Equal Abdomen: WNL Extremities: Normal Reflexes: Normal Cervical Dilatation: Fingertip Effacement: 50% Station: -3 Membranes: Intact Amniotic Fluid: Unevaluable Heart Rate: 140's Accelerations: Accelerations Present Decelerations: Variable Decelerations Varibility: Minimum Contractions on Admission: < 5 Minutes Apart Intensity: Mild Last 72 hours Lab Results CBC & BMP 07/06/18 11:50 OB Assessment/Plan Reason for admission: induction of labor Other Assessment: A IUP 38w6d CAT II tracing P IOL Induction Method: per Misoprostol Protocol GIA BUENO MD Jul 06, 2018 23:32
--- NOTE | 2018-07-06 23:36 | QN ---
Documentation Comment service rendered at 07/06/18 still noted minimum variability but acceleration noted VE 1-2/50/-3 ARM clear fluid in moderate amount fluid P no cytotec keep NPO if needed pitocin will be given GIA BUENO MD Jul 06, 2018 23:36
[2018-07-07] MEDS: MISOPROSTOL 50 MCG CAPSULE PO SCH ×2 (01:00→05:00)
--- NOTE | 2018-07-07 01:15 | PAC ---
Date/Time of Note Date/Time of Note DATE: 07/07/18 TIME: 01:15 Post-Anesthesia Notes Post-Anesthesia Note Last documented vital signs Vital Signs Date Temp Pulse Resp B/P (MAP) Pulse Ox O2 O2 Flow FiO2 Time Delivery Rate 07/06/18 98.0 76 17 112/73 11:42 (86) Activity: WNL Respiratory function: WNL Cardiovascular function: WNL Mental status: Baseline Pain reasonably controlled: Yes Hydration appropriate: Yes Nausea/Vomiting absent: Yes MARÍA MORENO MD Jul 07, 2018 01:15
[2018-07-07] MEDS: LACTATED RINGER'S 1,000 ML IV SCH ×2 (01:21→02:35)
[2018-07-07] MEDS ORDERED: OXYTOCIN 30 UNITS/LR 500 ML IV SCH (08:00)
[2018-07-07] MEDS ORDERED: DEXTROSE 5%-LR 1,000 ML IV SCH (08:00)
--- NOTE | 2018-07-07 10:06 | LDN ---
Date/Time of Note Date/Time of Note DATE: 07/07/18 TIME: 10:01 Delivery Summary despite of CAT II tracing after ARM at early labor which is clear allowed to continue laboring of normal female infant with 9/9 no meconium stained fluid over MLE Weeks of Gestation 39w Placenta Delivered: Spontaneously, Intact & Complete Meconium: none Episiotomy: Yes Indication for episiotomy CAT II tracing Perineal laceration: 0 Laceration repair: 00 ch gut Anesthesia type: Epidural Estimated blood loss: 200 Sponge & Needle done & correct: Yes All needle counts correct: Yes Any foreign bodies felt in the: No Delivery Information Sex Sex: female Apgars 1 Minute: 9 5 Minute: 9 Suctioning Nose & mouth suctioned at fidel: Yes Delee suction performed: Yes Umbilical Cord Umbilical cord with: 3 Vessels Cord presentations: no nuchal cord Cord Blood was obtained: Yes Mother & Baby Disposition Disposition Mom & Baby to Maternity; Good: Yes Mom transferred to: Other Baby to NICU: No () GIA UBENO MD Jul 07, 2018 10:06
[2018-07-07 13:00] VITALS: BP 113/65; PULSE 65; RESP 18
[2018-07-07] MEDS ORDERED: BENZOCAINE 20% 56 ML SPRAY TOP PRN (13:00)
[2018-07-07] MEDS ORDERED: METHYLERGONOVINE 0.2 MG INJ IM PRN (13:00)
[2018-07-07] MEDS ORDERED: WITCH HAZEL/GLYCERIN PAD PR PRN (13:00)
[2018-07-07] MEDS ORDERED: OXYCODONE/ASPIRIN (4.88/325) TAB PO PRN ×2 (13:00)
[2018-07-07] MEDS ORDERED: MISOPROSTOL 200 MCG TAB PR PRN (13:00)
[2018-07-07] MEDS ORDERED: ZOLPIDEM 5 MG TAB PO PRN (13:00)
[2018-07-07] MEDS ORDERED: CARBOPROST 250 MCG INJ IM PRN (13:00)
[2018-07-07] MEDS ORDERED: OXYTOCIN 30 UNITS/LR 500 ML IV PRN (13:00)
[2018-07-07] MEDS ORDERED: LANOLIN HPA 1 PKT TOP PRN (13:00)
[2018-07-07 14:00] VITALS: BP 116/60; PULSE 65; RESP 18
[2018-07-07 15:53] VITALS: BP 101/56; PULSE 75; RESP 18
[2018-07-07] MEDS: IBUPROFEN 600 MG TAB PO SCH (18:04)
[2018-07-07 20:00] VITALS: BP 103/50; PULSE 80; RESP 20
[2018-07-07] MEDS: SENNA/DOCUSATE NA (8.6MG/50MG) TAB PO SCH (21:01)
[2018-07-08] VITALS: BP 107/59; PULSE 72; RESP 18
[2018-07-08] MEDS: IBUPROFEN 600 MG TAB PO SCH ×5 (00:10→23:32)
[2018-07-08 04:15] VITALS: BP 108/60; PULSE 65; RESP 20
[2018-07-08 08:00] VITALS: BP 108/77; PULSE 73; RESP 18
--- NOTE | 2018-07-08 09:02 | PN ---
Date/Time of Note Date/Time of Note DATE: 07/08/18 TIME: 09:00 OB Subjective Subjective Subjective PPD# 1 Patient is doing well. She denies nausea, vomiting, shortness of breath, chest pain, headache. She has been ambulating without difficulty, tolerating regular diet. Pain is well controlled on current medications OB Objective Objective Objective Vital Signs Date Temp Pulse Resp B/P (MAP) Pulse Ox O2 O2 Flow FiO2 Time Delivery Rate 07/08/18 97.7 73 18 108/77 Room Air 08:00 (87) 07/08/18 98 04:15 General: AAO X 3, comfortable, NAD, appropriate mood and affect. ABD: +BS. Soft, non-tender. Uterus 2 cm below umbilicus Flank: No CVA tenderness (B/L) LE: Mild edema. No clubbing, cyanosis, thigh or calf tenderness (B/L). Homans 'sign is negative OB Assessment/Plan Other plan: 42-year-old s/p normal vaginal delivery at 38 weeks and 6 days. PPD#1 - AF, VSS - Contraception methods with R/B/A/FR discussed - Continue care - Discharge home tomorrow - Rx and instruction given - Follow up in 2 and 6 weeks at clinic TRAVIS PELAYO Jul 08, 2018 09:02
--- NOTE | 2018-07-08 09:03 | DS ---
Date/Time of Note Date/Time of Note DATE: 07/08/18 TIME: 09:02 Obstetrical Discharge Record Final Diagnosis Final Diagnosis: Term delivered Other Final Diagnosis 42-year-old s/p normal vaginal delivery at 38 weeks and 6 days. PPD#1. She is ambulating and tolerating regular diet. She is voiding without difficulty. Pain is controlled on current medication. - AF, VSS - Contraception methods with R/B/A/FR discussed - Continue care - Discharge home tomorrow - Rx and instruction given - Follow up in 2 and 6 weeks at clinic Vaginal Delivery Obstetrical Delivery: Spontaneous Condition on Discharge Physical Assessment Last Vitals: Vital Signs Date Temp Pulse Resp B/P (MAP) Pulse Ox O2 O2 Flow FiO2 Time Delivery Rate 07/08/18 97.7 73 18 108/77 Room Air 08:00 (87) 07/08/18 98 04:15 Voiding: Yes Bowel Movement: Yes Breast: Soft, non-tender Fundus: Firm Calf Tenderness: No Patient Condition: Stable TRAVIS PELAYO Jul 08, 2018 09:03
[2018-07-08] MEDS: SENNA/DOCUSATE NA (8.6MG/50MG) TAB PO SCH ×2 (09:08→21:04)
[2018-07-08 16:31] VITALS: BP 118/79; PULSE 71; RESP 18
[2018-07-08 19:50] VITALS: BP 114/69; PULSE 71; RESP 18
[2018-07-09 04:12] VITALS: BP 104/64; PULSE 65; RESP 17
[2018-07-09] MEDS: IBUPROFEN 600 MG TAB PO SCH ×2 (05:52→13:35)
[2018-07-09 08:56] VITALS: BP 108/65; PULSE 78; RESP 18
[2018-07-09] MEDS ORDERED: DIPHTH/TET/ACEL PERTUSS (ADULT) 0.5 ML VIAL IM* ONE (09:00)
[2018-07-09] MEDS: SENNA/DOCUSATE NA (8.6MG/50MG) TAB PO SCH (09:40)
== END 2018-07-09 16:19 | disposition home or self-care (01) | DRG 807 ==
LOC: OBT 10:42 → L-D 10:43 → PP1 07-07 12:42
PROVIDERS: ADMIT Obstetrics & Gynecology; ATTEND Obstetrics & Gynecology
PROC: 10907ZC Drainage of Amniotic Fluid, Therapeutic from Products of Conception, Via Natural or Artificial Opening (ICD-10-PCS; 2018-07-06)
PROC: 10E0XZZ Delivery of Products of Conception, External Approach (ICD-10-PCS; principal; 2018-07-07)
PROC: 0W8NXZZ Division of Female Perineum, External Approach (ICD-10-PCS; 2018-07-07)
DX: O76 Abnormality in fetal heart rate and rhythm complicating labor and delivery (principal); Z37.0 Single live birth; Z3A.38 38 weeks gestation of pregnancy; Z23 Encounter for immunization
CPT/HCPCS: 62319; 76815; 85025; 85610; 85730; 86592; 86850; 86900; 86901; 87340; 90715; 99464; J2590; J3010; J7120; J7121